=== PATIENT | male | born 1980 | race Caucasian/White ===

== ENCOUNTER → 2018-02-04 11:49 | Outpatient (CLI) | payer OTHER, SELFPAY ==
[2018-02-04 14:49] LABS: CRP < 2.90 mg/L (0.0-3.0)
[2018-02-05 16:13] LABS: Endomysial Antibody IgA Negative (Negative)
[2018-02-06 10:49] LABS: Immunoglobulin A 196 mg/dL (90-386); t-Transglutaminase IgA <2 U/mL (0-3)
== END ==
PROVIDERS: Family Provider Family Medicine; PCP Family Medicine; Visit Provider Internal Medicine Gastroenterology
DX: R19.7 Diarrhea, unspecified (principal); R63.4 Abnormal weight loss
CPT/HCPCS: 36415; 82784; 83516; 86140; 86255

== ENCOUNTER → 2018-02-09 16:08 | Outpatient (CLI) | payer OTHER, SELFPAY ==
--- NOTE | 2018-02-09 | IMM_PTH ---
PATIENT: JAGRUTI JAMES LOC: [facility] U#:[id number] AGE/SX: 45/M ROOM: RE02/09/[address]: Dr. Braydon Judge MD : 1980 BED: DIS: SPEC #: [id number] RECD: 02/25/18 13:18 STATUS: LESLEY REQ #: [id number] ROCHELLE: 02/09/18 00:[address]: Braydon Judge DEPT: IMMUNOHISTOCHEMISTRY RECD BY: Jazmin Bautista ENTERED: 02/25/18 13:19 SP TYPE: IMMUNO OTHR DR: Dr. Sharifa Malone MD Tissues: B - Stomach, NOS Procedures: H Pylori (initial) PHYSICIAN & INSTITUTION [place] [id number] SPECIMEN INFORMATION: Tissue Source: B - Gastric antrum/body Clinical Info: Weight loss Specimen Number: [id number] CPT code: 03114 METHODOLOGY: Deparaffinized sections of prefer/formalin-fixed tissue or PAP/DQ stained slides are incubated with monoclonal/polyclonal antibodies/oligonucleotide probes. Localization is made via biotin free immunoperoxidase method. Appropriate controls are performed and reacted as expected. Results on target cell population are indicated in the following table: RESULTS: ANTIBODY / CLONE RESULT Block B H Pylori (polyclonal) negative These tests were developed and their performance characteristics determined by [facility]. They may not have been cleared or approved by the [place]. Food and Drug Administration. The FDA has determined that such clearance or approval is not necessary. INTERPRETATION: B. Gastric antrum/body, biopsy: Negative for Helicobacter pylori organisms. AM:emily 02/26/18
--- NOTE | 2018-02-09 12:00 | EGD_PTH ---
PATIENT: JAGRUTI JAMES [facility][id number] AGE/SX: 45/M ROOM: RE02/09/[address]: Dr. Braydon Judge MD : 1980 BED: DIS: SPEC #: [id number] RECD: 02/09/18 15:17 STATUS: LESLEY EMILIA #: [id number] ROCHELLE: 02/09/18 12:[address]: Braydon Judge DEPT: SURGICAL PATHOLOGY RECD BY: Dayton Padilla ENTERED: 02/10/18 09:51 SP TYPE: EGD BIOPSY OT DR: Dr. Sharifa Malone MD [facility] Tissues: A - Small intestine biopsy B - Gastric mucous membrane Procedures: Surgery Specimen Level IV HEADER OPERATION: EGD with biopsy PRE-OP DIAGNOSIS: Weight loss TISSUE SUBMITTED: A - Small bowel biopsy, rule out celiac, B - Gastric antrum/body, rule out gastritis MICROSCOPIC DIAGNOSIS A. Small bowel, biopsy: Minimal nonspecific chronic inflammation. No evidence of celiac disease. See comment. B. Gastric antrum/body, biopsy: Mild chronic gastritis. AM:emily 02/11/18 COMMENT A. Sections show normal villous architecture. No granulomas are seen. No lymphoid aggregates are present and the lamina propria is not expanded by inflammatory cells. Clinical correlation is suggested. B. The results of immunohistochemistry for Helicobacter pylori will be reported separately ([id number]). MICROSCOPIC DESCRIPTION Slides are reviewed. GROSS DESCRIPTION A - Received in fixative is one container labeled with the patient's name and designated small bowel. The specimen consists of multiple irregular fragments of light nguyễn soft tissue that in aggregate measure 1.5 x 0.5 x 0.2 cm. The specimen is totally submitted in one cassette. B - Received in fixative is one container labeled with the patient's name and designated gastric antrum body. The specimen consists of multiple irregular fragments of light nguyễn soft tissue that in aggregate measure 0.6 x 0.5 x 0.2 cm. The specimen is totally submitted in one cassette. / RY:emily 02/10/18 TC:3 CPT: 59770 x2
== END ==
LOC: LABSPEC 16:09
PROVIDERS: Family Provider Family Medicine; PCP Family Medicine; Visit Provider Internal Medicine Gastroenterology
DX: R63.4 Abnormal weight loss (principal)
CPT/HCPCS: 88305; 88342

== ENCOUNTER → 2018-03-17 05:55 | Outpatient (CLI) | payer OTHER, SELFPAY ==
--- NOTE | 2018-03-17 06:14 | CT_ITS ---
STUDY: CT ABDOMEN WITH CONTRAST REASON FOR EXAM: Male, 37 years old. Left sided abdominal pain and 40 pound weight loss. Decreased appetite. RADIATION DOSAGE (If Supplied By Facility): CTDIvol = ( 8.81 ) mGy, DLP = ( 144.04 ) mGycm TECHNIQUE: Transaxial images were obtained post I.V. administration of 75mL ml of Isovue 300 contrast, and with oral contrast. Sagittal and coronal images were reconstructed. Individualized dose optimization techniques were used for this CT. COMPARISON: None. FINDINGS: The visualized lung bases are unremarkable. The visualized portions of the heart are within normal limits. Normal liver. Normal gallbladder and extrahepatic biliary system. Normal spleen. Normal pancreas. Normal bilateral adrenal glands. Normal right kidney. Normal left kidney. Normal visualized stomach. Normal small intestine. Heterogeneous appearance of the proximal ascending colon just distal to the ileocecal valve. Fecal material is seen at that site although a neoplastic process cannot be excluded. Colonoscopy is recommended for further evaluation. The appendix is visualized and appears normal. Normal abdominal aorta. Normal inferior vena cava. Normal retroperitoneum. Normal abdominal wall. Normal osseous structures. CT/Abdomen WITH IV Contrast IMPRESSION: Heterogeneous appearance of the ascending colon just distal to the ileocecal valve. Fecal material is seen at that site. Colonoscopy is recommended for further evaluation. Electronically Signed: Rolan Toney MD at 10:47 EDT Tel [phone], Service support ,
== END ==
PROVIDERS: Family Provider Family Medicine; PCP Family Medicine; Referring Provider Internal Medicine Gastroenterology; Visit Provider Internal Medicine Gastroenterology
DX: R63.4 Abnormal weight loss (principal); R10.9 Unspecified abdominal pain
CPT/HCPCS: 74160; Q9967

== ENCOUNTER → 2018-04-16 09:41 | Outpatient (CLI) | payer OTHER, SELFPAY ==
--- NOTE | 2018-04-16 09:41 | COLBX_PTH ---
PATIENT: JAGRUTI JAMES [facility][id number] AGE/SX: 45/M ROOM: RE04/16/[address]: Dr. Braydon Judge MD : 1980 BED: DIS: SPEC #: [id number] RECD: 04/16/18 15:27 STATUS: LESLEY EMILIA #: [id number] ROCHELLE: 04/16/18 09:[address]: Braydon Judge DEPT: SURGICAL PATHOLOGY RECD BY: Dayton Padilla ENTERED: 04/17/18 07:56 SP TYPE: COLON BX OTHR DR: Dr. Sharifa Malone MD [facility] Tissues: A - Right colon B - Ileum, NOS C - COLON BIOPSY D - Transverse colon Procedures: Surgery Specimen Level IV HEADER OPERATION: Colonoscopy with biopsy / polypectomy PRE-OP DIAGNOSIS: Abdomen pain, weight loss TISSUE SUBMITTED: A - Polyps x2 right colon, rule out adenoma, B - Biopsy terminal ileum, rule out Crohn's, celiac, Whipple's, C - Biopsy right and left colon, rule out microscopic colitis, D - Polypectomy transverse colon, rule out adenoma MICROSCOPIC DIAGNOSIS A. Polyps x2, right colon, polypectomy: Fragments of tubular adenoma. See comment. B. Terminal ileum, biopsy; Fragments of small intestinal mucosa, no pathologic diagnosis. C. Right and left colon, biopsy: Fragments of colonic mucosa, no pathologic diagnosis. D. Polyp, transverse colon, polypectomy: Tubular adenoma. PONCHO:emily 04/20/18 COMMENT A. A few minute fragments of unremarkable small intestinal mucosa are also noted. MICROSCOPIC DESCRIPTION Slides are reviewed. GROSS DESCRIPTION A - Received in fixative is one container labeled with the patient's name and designated polyps x2 right colon. The specimen consists of multiple irregular fragments of nguyễn soft tissue mixed with fecal material that in aggregate measure 1.5 x 1 x 0.3 cm. The specimen is totally submitted in one cassette. B - Received in fixative is one container labeled with the patient's name and designated terminal ileum biopsy. The specimen consists of multiple irregular fragments of light nguyễn soft tissue that in aggregate measure 0.4 x 0.4 x 0.1 cm. The specimen is totally submitted in one cassette. C - Received in fixative is one container labeled with the patient's name and designated biopsy right and left colon. The specimen consists of multiple irregular fragments of light nguyễn soft tissue that in aggregate measure 1 x 0.5 x 0.1 cm. The specimen is totally submitted in one cassette. D - Received in fixative is one container labeled with the patient's name and designated polyp transverse. The specimen consists of multiple irregular fragments of nguyễn soft tissue that in aggregate measure 0.5 x 0.5 x 0.1 cm. The specimen is totally submitted in one cassette. / SJ:rg 04/17/18 TC:1 CPT: 09650 x4
--- OUTSIDE RECORDS SUMMARY | 2018-06-11 22:22 | XMS RPT_ITS ---
:1980 Author Organization [facility] Care Team Providers Name Role Phone [place] Attending Unavailable Faisal, Sharifa Referring Unavailable Faisal, Sharifa Primary Care Unavailable Faisal, Sharifa Attending Unavailable Faisal, Sharifa Referring Unavailable Faisal, Sharifa Primary Care Unavailable Faisal, Sharifa Referring Unavailable Faisal, Sharifa Primary Care Unavailable PROVIDER, UNKNOWN Attending Unavailable Faisal, Sharifa Referring Unavailable Faisal, Sharifa Primary Care Unavailable Mina Skelton Attending Unavailable Faisal, Sharifa Attending Unavailable Faisal, Sharifa Referring Unavailable Faisal, Sharifa Primary Care Unavailable Faisal, Sharifa Attending Unavailable Faisal, Sharifa Referring Unavailable Faisal, Sharifa Primary Care Unavailable Faisal, Sharifa Attending Unavailable Faisal, Sharifa Referring Unavailable Faisal, Sharifa Primary Care Unavailable Jabour, Vincent Attending Unavailable Faisal, Sharifa Referring Unavailable Faisal, Sharifa Primary Care Unavailable Jabour, Vincent Attending Unavailable Faisal, Sharifa Primary Care Unavailable Jabour, Vincent Attending Unavailable Jabour, Vincent Referring Unavailable Faisal, Sharifa Primary Care Unavailable Jabour, Vincent Attending Unavailable Jabour, Vincent Referring Unavailable Faisal, Sharifa Primary Care Unavailable Jabour, Vincent Attending Unavailable Jabour, Vincent Referring Unavailable Faisla, Sharifa Primary Care Unavailable PROBLEMS PROBLEMS DATE TYPE CONDITION / CODE ATTENDING STATUS SOURCE 01/06/2018 Admitting Abnormal weight loss Faisal, Active [employer] Diagnosis / R63.4(ICD-10) [facility] Repository 01/06/2018 Admitting Epigastric pain / Faisal, Active [employer] Diagnosis R10.13(ICD-10) [facility] Repository 11/26/2017 Admitting Pneumonia, Faisal, Active [facility] [employer] Diagnosis unspecified organism [facility] / J18.9(ICD-10) Repository 11/26/2017 Admitting Encntr for f/u exam Faisal, Active [facility] [employer] Diagnosis aft trtmt for cond [facility] oth than malig Repository neoplm / Z09(ICD-10) 11/11/2017 Admitting Abnormal findings on Faisal, Active [facility] [employer] Diagnosis diagnostic imaging [facility] of body structures / Repository R93.8(ICD-10) 10/22/2017 Admitting Gastro-esophageal Mina Skelton Active [facility] [employer] Diagnosis reflux disease System without esophagitis Repository / K21.9(ICD-10) 10/22/2017 Admitting Allergy status to Mina Skelton Active [facility] Diagnosis penicillin / System Z88.0(ICD-10) Repository 10/22/2017 Admitting Nicotine dependence, Mina Skelton Active [facility] Diagnosis cigarettes, System uncomplicated / Repository F17.210(ICD-10) 10/22/2017 Admitting Cough / R05(ICD-10) Mina Skelton Active [facility] Diagnosis System Repository 10/20/2017 Admitting Nicotine dependence, Unknown Active [facility] Diagnosis unspecified, System uncomplicated / Repository F17.200(ICD-10) 10/20/2017 Admitting Hydronephrosis with Unknown Active [facility] Diagnosis renal and ureteral System calculous Repository obstruction / N13.2(ICD-10) 10/20/2017 Admitting Unspecified Unknown Active [facility] Diagnosis abdominal pain / System R10.9(ICD-10) Repository 08/14/2017 Admitting Lumbago with Faisal, Active [facility] Diagnosis sciatica, right side [facility] / M54.41(ICD-10) Repository 07/30/2017 Admitting Cramp and spasm / Jeromin, Active [facility] Diagnosis R25.2(ICD-10) [facility] Repository 07/30/2017 Admitting Pain in left leg / Jeromin, Active [facility] Diagnosis M79.605(ICD-10) [facility] Repository 07/30/2017 Admitting Pain in right leg / Jeromin, Active [facility] Diagnosis M79.604(ICD-10) [facility] Repository 07/30/2017 Admitting Hypokalemia / Jeromin, Active [facility] Diagnosis E87.6(ICD-10) [facility] Repository 07/30/2017 Admitting Family history of Jeromin, Active [facility] Diagnosis malig neoplasm of [facility] trachea, bronc and Repository lung / Z80.1(ICD-10) 07/30/2017 Admitting Family history of Jeromin, Active [facility] Diagnosis malignant neoplasm [facility] of organs or systems Repository / Z80.8(ICD-10) 07/30/2017 Admitting Pain in leg, Jeromin, Active [facility] Diagnosis unspecified / [facility] M79.606(ICD-10) Repository PROCEDURES PROCEDURES No Procedure Records FoundRESULTS RESULTS COLON BIOPSY (CHOOSE Observed: 04/16/2018 Status: F Source: [place] [facility] SITE) 9:41 AM [facility] REPOSIT[facility] Patient: JAGRUTI JAMES : 1980 (38/M) Acct Num: [id number] Phys: Braydon Judge Unit Num: [id number] Loc: LABSPEC Specimen: [id number] Received: 04/16/18 - 1527 Spec Type: COLON BX TISSUES 1 TISSUES: A. Right colon B. Ileum, NOS C. COLON BIOPSY D. Transverse colon COMMENT A. A few minute fragments of unremarkable small intestinal mucosa are also noted. GROSS DESCRIPTION A - Received in fixative is one container labeled with the patient's name and designated polyps x2 right colon. The specimen consists of multiple irregular fragments of nguyễn soft tissue mixed with fecal material that in aggregate measure 1.5 x 1 x 0.3 cm. The specimen is totally submitted in one cassette. B - Received in fixative is one container labeled with the patient's name and designated terminal ileum biopsy. The specimen consists of multiple irregular fragments of light nguyễn soft tissue that in aggregate measure 0.4 x 0.4 x 0.1 cm. The specimen is totally submitted in one cassette. C - Received in fixative is one container labeled with the patient's name and designated biopsy right and left colon. The specimen consists of multiple irregular fragments of light nguyễn soft tissue that in aggregate measure 1 x 0.5 x 0.1 cm. The specimen is totally submitted in one cassette. D - Received in fixative is one container labeled with the patient's name and designated polyp transverse. The specimen consists of multiple irregular fragments of nguyễn soft tissue that in aggregate measure 0.5 x 0.5 x 0.1 cm. The specimen is totally submitted in one cassette. / PONCHO:emily 04/17/18 TC:1 CPT: 94091 x4 HEADER OPERATION: Colonoscopy with biopsy / polypectomy PRE-OP DIAGNOSIS: Abdomen pain, weight loss TISSUE SUBMITTED: A - Polyps x2 right colon, rule out adenoma, B - Biopsy terminal ileum, rule out Crohn's, celiac, Whipple's, C - Biopsy right and left colon, rule out microscopic colitis, D - Polypectomy transverse colon, rule out adenoma MICROSCOPIC DESCRIPTION Slides are reviewed. MICROSCOPIC DIAGNOSIS A. Polyps x2, right colon, polypectomy: Fragments of tubular adenoma. See comment. B. Terminal ileum, biopsy; Fragments of small intestinal mucosa, no pathologic diagnosis. C. Right and left colon, biopsy: Fragments of colonic mucosa, no pathologic diagnosis. D. Polyp, transverse colon, polypectomy: Tubular adenoma. PONCHO:emily 04/20/18 Signed Vaibhav Martinez 04/20/18 <signature on file> Performed By: #### PCOLBX #### [facility] [address] [place], [address] ABDOMEN WITH IV Observed: 03/17/2018 Status: F Source: [place] [facility] CONTRAST 6:14 AM [facility] REPOSITORY [facility] Services [address] [place] [address] Abdomen WITH IV Contrast MR#: [id number] Acct: [id number] Name: JAGRUTI JAMES Rep #: [id number] : 1980 M 37 From: Rolan Toney MD PCP: Sharifa Malone Status: REG CLI Study: Abdomen WITH IV Contrast Date of Exam: 03/17/18 Exam# [id number] Ordering Dr: Braydon Judge MD STUDY: CT ABDOMEN WITH CONTRAST REASON FOR EXAM: Male, 37 years old. Left sided abdominal pain and 40 pound weight loss. Decreased appetite. RADIATION DOSAGE (If Supplied By Facility): CTDIvol = ( 8.81 ) mGy, DLP = ( 144.04 ) mGycm TECHNIQUE: Transaxial images were obtained post I.V. administration of 75mL ml of Isovue 300 contrast, and with oral contrast. Sagittal and coronal images were reconstructed. Individualized dose optimization techniques were used for this CT. COMPARISON: None. FINDINGS: The visualized lung bases are unremarkable. The visualized portions of the heart are within normal limits. Normal liver. Normal gallbladder and extrahepatic biliary system. Normal spleen. Normal pancreas. Normal bilateral adrenal glands. Normal right kidney. Normal left kidney. Normal visualized stomach. Normal small intestine. Heterogeneous appearance of the proximal ascending colon just distal to the ileocecal valve. Fecal material is seen at that site although a neoplastic process cannot be excluded. Colonoscopy is recommended for further evaluation. The appendix is visualized and appears normal. Normal abdominal aorta. Normal inferior vena cava. Normal retroperitoneum. Normal abdominal wall. Normal osseous structures. CT/Abdomen WITH IV Contrast IMPRESSION: Heterogeneous appearance of the ascending colon just distal to the ileocecal valve. Fecal material is seen at that site. Colonoscopy is recommended for further evaluation. Electronically Signed: Rolan Toney MD at 10:47 EDT Tel [phone], Service support , CC: Sharifa Malone; Braydon Judge Seat Nailer: Signed EGD ([facility] SITE) Observed: 02/09/2018 Status: F Source: [place] 12:00 PM [facility] REPOSITORY Patient: JAGRUTI JAMES : 1980 (37/M) Acct Num: [id number] Phys: Braydon Judge Unit Num: [id number] Loc: LABSPEC Specimen: [id number] Received: 02/09/18 1517 Spec Type: EGD BIOPSY TISSUES 1 TISSUES: A. Small intestine biopsy B. Gastric mucous membrane COMMENT A. Sections show normal villous architecture. No granulomas are seen. No lymphoid aggregates are present and the lamina propria is not expanded by inflammatory cells. Clinical correlation is suggested. B. The results of immunohistochemistry for Helicobacter pylori will be reported separately ([id number]). GROSS DESCRIPTION A - Received in fixative is one container labeled with the patient's name and designated small bowel. The specimen consists of multiple irregular fragments of light nguyễn soft tissue that in aggregate measure 1.5 x 0.5 x 0.2 cm. The specimen is totally submitted in one cassette. B - Received in fixative is one container labeled with the patient's name and designated gastric antrum body. The specimen consists of multiple irregular fragments of light nguyễn soft tissue that in aggregate measure 0.6 x 0.5 x 0.2 cm. The specimen is totally submitted in one cassette. / RY:emily 02/10/18 TC:3 CPT: 28766 x2 HEADER OPERATION: EGD with biopsy PRE-OP DIAGNOSIS: Weight loss TISSUE SUBMITTED: A - Small bowel biopsy, rule out celiac, B - Gastric antrum/ body, rule out gastritis MICROSCOPIC DESCRIPTION Slides are reviewed. MICROSCOPIC DIAGNOSIS A. Small bowel, biopsy: Minimal nonspecific chronic inflammation. No evidence of celiac disease. See comment. B. Gastric antrum/body, biopsy: Mild chronic gastritis. AM:emily 02/11/18 Signed Edu Jenny 02/11/18 <signature on file> Performed By: #### FANNYD #### [facility] [address] [place] [address]. [place], [place], [address] IMMUNOHISTOCHEMISTRY Observed: 02/09/2018 Status: F Source: [place] 12:00 AM [facility] REPOSITORY Patient: JAGRUTI JAMES : 1980 (37/M) Acct Num: [id number] Phys: Braydon Judge Unit Num: [id number] Loc: LABSPEC Specimen: [id number] Received: 02/25/181317 Spec Type: IMMUNO TISSUES 1 TISSUES: B. Stomach, NOS SPECIMEN INFORMATION: Tissue Source: B - Gastric antrum/body Clinical Info: Weight loss Specimen Number: [id number] CPT code: 65109 METHODOLOGY: Deparaffinized sections of prefer/formalin-fixed tissue or PAP/DQ stained slides are incubated with monoclonal/polyclonal antibodies/oligonucleotide probes. Localization is made via biotin free immunoperoxidase method. Appropriate controls are performed and reacted as expected. Results on target cell population are indicated in the following table: RESULTS: ANTIBODY / CLONE RESULT Block B H Pylori (polyclonal) negative These tests were developed and their performance characteristics determined by [facility]. They may not have been cleared or approved by the U.S. Food and Drug Administration. The FDA has determined that such clearance or approval is not necessary. INTERPRETATION: B. Gastric antrum/body, biopsy: Negative for Helicobacter pylori organisms. AM:emily 02/26/18 [facility] [address] [address] Signed Edu [facility] 02/27/18 <signature on file> Performed By: #### PIMM #### [facility] [address] [place] [address]. [place], [place], [id number] CRP Collected: 02/04/2018 Status: F Source: [place] 11:57 AM [facility] REPOSITORY TYPE CODE TESTS RESULT OUT OF RANGE REFERENCE UNITS LAB L501.6710 0.0-3.0 mg/L Normal < 2.90 C-REACTIVE PROT Result Comment: C-Reactive Protein (CRP) provides useful information for the diagnosis, therapy and monitoring of inflammatory processes and associated diseases. For the evaluation of Relative Risk for Cardiovascular Disease, a High Sensitivity CRP (HSCRP) should be ordered. Performed By: #### L501.6710 #### [facility] [address] [place], [address] CELIAC DISEASE Collected: 02/04/2018 Status: F Source: [place] PROFILE 11:57 AM [facility] REPOSITORY TYPE CODE TESTS RESULT OUT OF RANGE REFERENCE UNITS LAB L3200.1400 90-386 mg/dL Normal IMMUNO A 196 Result Comment: Performed at: [facility] [id number] Worm Raiser: Braydon Ayers PhD, Phone: [phone] LAB L3288.4939 0-3 U/mL Normal tTG IGA <2 Result Comment: Negative 0 - 3 Weak Positive 4 - 10 Positive >10 Tissue Transglutaminase (tTG) has been identified as the endomysial antigen. Studies have demonstr- ated that endomysial IgA antibodies have over 99% specificity for gluten sensitive enteropathy. LAB L3410.2970 Negative Normal ENDOMYSIAL IGA Negative Performed By: #### L3410.2400 #### [facility] (refer to report for specific site) refer to report for address and phone number RF UPPER GI W/ AIR Observed: 01/06/2018 Status: F Source: [employer] CONTRAST W/ KUB 1:07 PM SYSTEM REPOSITORY Patient Name: JAGRUTI JAMES Fluoroscopy Exam Date/Time 01/06/2018 09:50:00 EDT Exam RF Upper GI w/ Air Contrast + KUB Ordering Physician MD MALONE CATHERINE Accession Number [id number] CTP4 Codes 03001 () Reason For Exam Abnormal weight loss Report Indication: Epigastric pain and weight loss. Fluoroscopy time: 2 minutes and 54 seconds 13 fluoroscopic images. Following the oral administration of barium, an upper GI was form. There is prompt emptying of radiotracer from the esophagus into the stomach. The distal esophagus is normal in appearance. There is an area of wall irregularity within the duodenal bulb possibly related to inflammation/duodenitis. No discrete filling defects are visualized. The stomach and C-sweep are unremarkable. Gastroesophageal reflux was not visualized on this study. IMPRESSION: 1. Area of wall irregularity within the duodenal bulb possibly related to inflammation/duodenitis. However, endoscopy is recommended for further evaluation. Report Dictated on Final Dictating Physician: DO ASKEW ANTHONY Signed Date and Time: 01/06/2018 1:13 pm Signed by: DO ASKEW ANTHONY Transcribed Date and Time: 01/06/2018 1:14 CR CHEST PA/LAT Observed: 11/27/2017 Status: F Source: [employer] 8:05 AM SYSTEM REPOSITORY Patient Name: JAGRUTI JAMES Diagnostic Radiology Exam Date/Time 11/26/2017 17:42:00 EDT Exam CR Chest PA/LAT Ordering Physician MD MALONE CATHERINE Accession Number [id number] CPT4 Codes 06430 () Reason For Exam Lobar pneumonia, unspecified organism Report CHEST X-RAY PA/LATERAL CLINICAL INDICATION: Pneumonia follow-up Frontal and lateral plain films of the chest were obtained. COMPARISON: 11/11/2017 FINDINGS: The cardiac silhouette is within normal limits. The lungs are hyperinflated. Coarsening of the interstitial lung markings is noted, likely chronic. No focal consolidation is seen within the lungs. No pleural effusion or pneumothorax is identified. There are degenerative changes of the thoracic spine. IMPRESSION: Hyperinflation of the lungs with coarsening of the interstitial lung markings, suggestive of a component of obstructive lung disease. No focal consolidation is identified. Report Dictated on Final Dictating Physician: JOSEFINA FOY Signed Date and Time: 11/27/2017 8:06 am Signed by: JOSEFINA FOY Transcribed Date and Time: 11/27/2017 8:07 CR CHEST PA/LAT Observed: 11/12/2017 Status: F Source: [employer] 7:14 AM SYSTEM REPOSITORY Patient Name: JAGRUTI JAMES Diagnostic Radiology Exam Date/Time 11/11/2017 16:24:34 EDT Exam CR Chest PA/LAT Ordering Physician MD MALONE CATHERINE Accession Number [id number] CPT4 Codes 56040 () Reason For Exam follow up Report CHEST, PA and LATERAL: INDICATION: Follow-up, abnormal chest x-ray COMPARISON: 10/22/2017 PA and lateral views of the chest were obtained. The heart is normal in size. The mediastinal silhouette is normal. Again noted is a right apical density, with slight interval clearing although similar in appearance to the prior examination. No effusions are seen. There is no pleural thickening. The osseous structures are unremarkable. IMPRESSION: Persistent right apical density with partial interval clearing. Continued follow-up is recommended. If this does not readily clear than a CT of the chest would be warranted. Report Dictated on Final Dictating Physician: DO FRYE ALFRED Signed Date and Time: 11/12/2017 7:17 am Signed by: DO FRYE ALFRED Transcribed Date and Time: 11/12/2017 7:18 CR CHEST PA/LAT Observed: 10/22/2017 Status: F Source: [employer] 9:49 PM SYSTEM REPOSITORY Patient Name: JAGRUTI JAMES Diagnostic Radiology Exam Date/Time 10/22/2017 21:23:04 EDT Exam CR Chest PA/LAT Ordering Physician MD SKELTON DAVID Accession Number [id number] CPT4 Codes 54709 () Reason For Exam cough 2 weeks Report HISTORY: Cough tightness in chest Frontal and lateral views chest compared to prior study from 09/05/2015. FINDINGS: A right apex infiltrative appearing process has appeared since last exam with possible areas of cavitation. Appearance is most suggestive of infectious process-TB cannot be excluded Report Dictated on Final Dictating Physician: MD CHESTER WILLIAM Signed Date and Time: 10/22/2017 9:51 pm Signed by: MD NEMO, TALA Transcribed Date and Time: 10/22/2017 9:52 URINALYSIS,MACRO Collected: 10/20/2017 Status: F Source: [employer] 9:59 AM SYSTEM REPOSITORY TYPE CODE TESTS RESULT OUT OF RANGE REFERENCE UNITS LAB APPUR Clear NA Appearance CLEAR LAB COLUR Lt. Yellow NA Color YELLOW LAB USG 1.005-1.030 NA Specific Abnormal [place],Urine <= 1.005 Alert LAB UPH 5.0-8.0 NA Normal pH,Urine 7.0 LAB ULUK Negative NA Leukocytes NEGATIVE LAB UNIT Negative NA Nitrites NEGATIVE LAB UPRO Negative mg/dL Total Protein,Urine NEGATIVE LAB UGLU Negative mg/dL Glucose,Urine NEGATIVE LAB UKET Negative mg/dL Ketone,Urine TRACE LAB UURO 0-1 mg/dL Urobilinogen 0.2 LAB UBIL Negative NA Bilirubin,Ur NEGATIVE LAB UBLD Negative {RBC}/uL Occult Blood,Ur 1 + Performed By: #### UAMAC, UAMIC #### [facility] [address] [place] [address] URINALYSIS,MICROSCOPIC Collected: Status: F Source: [employer] 10/20/2017 9:59 AM [facility] REPOSITORY TYPE CODE TESTS RESULT OUT OF REFERENCE UNITS RANGE LAB VOLUR NA Volume,Urine 12 ml LAB WBCU 0-5 /[HPF] WBC,Urine 0 - 2 LAB RBCU 0-2 /[HPF] RBC,Urine 3 - 5 LAB EPIU 3-5 /[HPF] Epithelial Cells 0 - 2 LAB ELIZABETH Negative NA Bacteria Few (1-5) Performed By: #### UAMAC, UAMIC #### [facility] [address] [place] [address] Observed: 10/20/2017 Status: F Source: [employer] CULTURE URINE 9:59 AM SYSTEM REPOSITORY Order Comment: Specimen Source Comment:Urine, clean catch CULTURE URINE --> Status: F No growth (<1,000 CFU/ml). Performed By: #### C/UR #### [facility] [address] [id number] [address] ABDOMEN/PELVIS W/O Observed: 10/20/2017 Status: F Source: [employer] CONTRAST 9:32 AM SYSTEM REPOSITORY Patient Name: JAGRUTI JAMES CT Exam Date/Time 10/20/2017 09:23:[address] Abdomen/Pelvis (No PO, No IV) Ordering Physician MD MAN TRAVIS C. Accession Number [id number] CPT4 Codes 46500 (CT Abdomen/Pelvis (No PO, No IV)) Reason For Exam ABDOMINAL PAIN Report CT abdomen and pelvis without contrast Clinical: Left flank pain COMPARISON: None provided CT imaging the abdomen and pelvis was performed without contrast. FINDINGS: Assessment of the abdominal and pelvic viscera is limited due to lack of IV and oral contrast material. Included lung bases are without focal consolidation or pleural effusion. The left kidney shows mild hydronephrosis and hydroureter. There is is an obstructing calculus at the left ureterovesicular junction, seen on image 114 series 2 measuring approximately 0.4 cm. The ureterovesicular junction also shows mild, localized soft tissue thickening on the left, suggesting edema. No other left-sided renal or ureteral calculi are seen. On the right, there is no hydronephrosis. No sizable right renal calculi are noted. There is no right hydroureter. Urinary bladder otherwise appears unremarkable. The noncontrast liver is normal in size. No abnormal intrahepatic biliary dilatation. Hypodense lesion within left hepatic lobe, suggesting likely small cyst versus hemangioma, measuring 1 cm on image 22 of series 2. The spleen, pancreas, adrenals, gallbladder and abdominal aorta appear unremarkable. There is a small hiatal hernia. No evidence of gastric, small bowel or colonic obstruction is identified. The appendix is normal in caliber. No free intraperitoneal air or ascites. Osseous structures appear grossly intact. Mild endplate degenerative spurring changes of the spine. IMPRESSION: Mild left-sided hydronephrosis and hydroureter with an approximate 0.4 cm obstructing calculus at the level of the left ureterovesicular junction. Report Dictated on Final Dictating Physician: MAYE DE LA CRUZ Signed Date and Time: 10/20/2017 9:37 am Signed by: MAYE DE LA CRUZ Transcribed Date and Time: 10/20/2017 9:38 HEMOGRAM W/ AUTODIFF Collected: 10/20/2017 Status: F Source: [employer] 8:44 AM SYSTEM REPOSITORY TYPE CODE TESTS RESULT OUT OF REFERENCE UNITS RANGE LAB IWBC 3.6-10.7 10*3/uL WBC Normal 10.5 LAB RBC 4.40-5.90 10*6/uL Low RBC 4.08 LAB HGB 13.0-18.0 g/dL Low Hemoglobin 12.7 LAB HCT 40.0-52.0 % Low Hematocrit 37.5 LAB MCV 80.0-98.0 fL MCV Normal 91.8 LAB MCH 26.0-34.0 pg MCH Normal 31.1 LAB MCHC 32.0-36.0 % MCHC Normal 33.9 LAB RDW 11.5-14.5 % RDW Normal 13.3 LAB PLT 140-440 10*3/uL Platelet Normal 349 LAB MPV 7.4-10.4 fL MPV Normal 7.5 LAB GRAN% 40.0-80.0 % Granulocytes Normal 58.2 LAB LYMP% 20.0-40.0 % Lymphocytes Normal 24.5 LAB MONO% 2.0-10.0 % Monocytes High 11.0 LAB EOS% 1.0-6.0 % Eosinophils Normal 5.2 LAB BAS% 0.0-2.0 % Basophils Normal 1.1 LAB ANC 1.8-7.0 10*3/uL Abs Normal Neutrophile Cnt 6.1 LAB ALC 1.0-4.3 10*3/uL Abs Lymph Cnt Normal 2.6 LAB AMC 0.0-0.8 10*3/uL Abs Monocyte High Cnt 1.2 LAB AEC 0.0-0.5 10*3/uL Abs Eosin Cnt Normal 0.5 LAB ABC 0.0-0.2 10*3/uL Abs Baso Cnt Normal 0.1 Performed By: #### HEMDF, BMP3 #### [facility] [address] [place] [address] BASIC METABOLIC PANEL Collected: 10/20/2017 Status: F Source: [employer] 8:44 AM SYSTEM REPOSITORY TYPE CODE TESTS RESULT OUT OF RANGE REFERENCE UNITS LAB NA3 135-145 mmol/L Sodium Normal 140 LAB K3 3.5-5.1 mmol/L Low Potassium 3.3 LAB CL3 98-109 mmol/L Chloride Normal 105 LAB CO23 21-32 mmol/L Carbon Normal Dioxide 26 LAB ANIN3 NA Anion Gap 9 LAB GLUC3 70-100 mg/dL Glucose Normal 97 LAB BUN3 7-25 mg/dL Urea Normal Nitrogen 8 LAB CRET3 0.55-1.40 mg/dL Normal Creatinine 0.63 LAB GF3BR >60 mL/min eGFR > 60.0 LAB GF3WR >60 mL/min eGFR OTHER > 60.0 Result Comment: Source- MDRD equation with creatinine calibration to IDMS(NKDEP) eGFR not recommended for drug dose adjustment LAB CA3 8.2-10.1 mg/dL Normal Calcium 9.3 Performed By: #### HEMDF, BMP3 #### [facility] [address] [place] [address] CR SPINE LUMBOSACRAL 4+ Observed: 08/15/2017 Status: F Source: [employer] 10:10 AM SYSTEM REPOSITORY Patient Name: JAGRUTI JAMES Diagnostic Radiology Exam Date/Time 08/14/2017 16:41:44 EDT Exam CR Spine Lumbosacral 4+ Views Ordering Physician MD MALONE CATHERINE Accession Number [id number] CPT4 Codes 71485 () Reason For Exam Lumbago with sciatica, right side Report CLINICAL INFORMATION: Low back pain. Right lower extremity radiculopathy. Frontal, bilateral oblique , L5/S1 spot view and lateral views of the lumbar spine were obtained. There are 5 lumbar type vertebrae. Bone density appears normal. The vertebral heights are within normal limits. No spondylolisthesis or spondylolysis is noted.Disc spaces are preserved. Mild degenerative endplate changes at the L2-S1 levels. No fracture is noted. IMPRESSION: Mild degenerative endplate changes. Report Dictated on Final Dictating Physician: MD LAROSE LAURA Signed Date and Time: 08/15/2017 10:11 am Signed by: MD LAROSE LAURA Transcribed Date and Time: 08/15/2017 10:12 ALLERGIES ALLERGIES No Allergies Records FoundENCOUNTERS ENCOUNTERS ADMIT/DISCHARGE ACCOUNT NUMBER ADMITTING ENCOUNTER LOCATION SOURCE CLASS 04/16/2018 [id number] [facility] ding:LABSPEC Repository 03/17/[id number] [facility] ding:CT Repository 03/09/2018 [id number] Ambulatory [facility] Repository 02/09/[id number] [facility] ding:LABSPEC Repository 02/04/[id number] [facility] ding:MTLAB Repository 01/06/2018 [id number] Ambulatory [facility] Repository 11/26/2017 [id number] Ambulatory [facility] Repository 11/11/2017 [id number] [facility] Rep[facility] 10/22/2017 [id number] Emergency [employer] [facility] [employer] EDRoom: System [id number]: Repository [id number] 10/20/2017 [id number] Emergency [employer] [facility] [employer] EDRoom: System [id number]: Repository [id number] 08/14/2017 [id number] Ambulatory [facility] Repository 07/30/2017 [id number] Emergency [employer] [facility] [employer] EDRoom: System [id number]: Repository [id number] PAYERS PAYERS ENCOUNTER GUARANTOR PAYER SUBSCRIBER SOURCE 04/16/2018 JAGRUTI Higuera Primary DANY [place] Ana [id number] E Insurance:MEDICAL SKRABADOB: [facility] [id number]: Repository [address]Hmu: 330 [id number] [phone] (HP) Date:9090-16-43NQ [address] [place] [id number]: 04/16/2018 Secondary NOT GIVENUNK Ana Insurance:SELF PAY [facility] Number: Effective Repository Date:2018-04-16 03/17/2018 JAGRUTI Higuera Primary DANY [place] Ana [id number] Insurance:MEDICAL SKRABADOB: [facility] [id number] Number: Repository [id number]: 330 [id number] [phone] (HP) Date:9701-20-58DD [address] [place] [phone]: 03/17/2018 Secondary NOT GIVENUNK [place] Insurance:SELF PAY [facility] Number: Effective Repository Date:2018-03-10 03/09/2018 [facility] SkrabaDOB: System E [facility] [id number] Repository Market Number: Effective [facility], [place] Date: [address]Mgm: (HP) 02/09/2018 JAGRUTI [place] [facility] Insurance:MEDICAL SKRABADOB: Community MARKET [facility] [id number] Number: Repository [id number]: [phone] [id number] [phone] () Date:6936-30-88RS [address] [id number]: 02/09/2018 Secondary NOT GIVENUNK Ana Insurance:SELF PAY [facility] Number: Effective Repository Date:2018-02-09 02/04/2018 JAGRUTI Newsome [facility]74 E Insurance:MEDICAL SKRABADOB: Community MARKET [facility] [id number] Number: Repository [id number]: [phone] [id number] [phone] () Date:[id number] [address]BW: 02/04/2018 Secondary NOT GIVENUNK [place] Insurance:SELF PAY [facility] Number: Effective Repository Date:2018-02-04 01/06/2018 [facility]:Medical SkrabaDOB: System E [facility] [id number] Repository Market Number: Effective [facility], [place] Date: [address]Yxr: (HP) 11/26/2017 [facility]:Medical SkrabaDOB: System E [facility] [id number] Repository [place]: [place] Date: [address]Bii: () 11/11/2017 Jagruti Newsome [facility]: Insurance:Medical SkrabaDOB: System E [place] [facility] [employer] [id number] Repository [place]: [place] Date: [address]Lau: (HP) 10/22/2017 [facility]uti [facility]:Medical SkrabaDOB: System E [place] [facility] [employer] [id number] Repository Market [place]: [place] Date: [address]Awz: () 10/20/2017 Jagruti Newsome [facility]: Insurance:Medical SkrabaDOB: System E [place] [facility] [employer] [id number] Repository Market [place]: [place] Date: [address]Xoz: () 08/14/2017 Jagruti Newsome [facility]: Insurance:Medical SkrabaDOB: System E [place] [facility] [employer] [id number] Repository Market [place]: [place] Date: [address]Vjc: () 07/30/2017 Jagruti Newsome [facility]: Insurance:Medical SkrabaDOB: System E [place] [facility] [employer] [id number] Repository Market [place]: [place] Date: [address]Nou: ()
== END ==
LOC: LABSPEC 16:03
PROVIDERS: Family Provider Family Medicine; PCP Family Medicine; Referring Provider Internal Medicine Gastroenterology; Visit Provider Internal Medicine Gastroenterology
DX: R10.9 Unspecified abdominal pain (principal); R63.4 Abnormal weight loss
CPT/HCPCS: 88305